=== PATIENT | female | born 1965 | race Caucasian/White ===

== ENCOUNTER 2018-02-14 10:24 | Emergency (ER) | payer MEDICAID ==
[2018-02-14] MEDS: SOD CHLORIDE 0.9% 1,000 ML IV (10:39)
[2018-02-14] MEDS: LORAZEPAM 2 MG INJ IV (10:40)
[2018-02-14 10:48] LABS: ADD MAN DIFF? NO
[2018-02-14 10:58] LABS: WHITE BLOOD COUNT 6.6 10^3/ul (4.8-10.8)
[2018-02-14 10:58] LABS: BASOPHILS % 0.3 % (0.0-2.0); EOSINOPHILS # 0.1 10^3/ul (0.0-0.5); EOSINOPHILS % 1.4 % (0.0-7.0); HEMOGLOBIN 13.3 g/dl (12.0-16.0); LYMPHOCYTES # 2.8 10^3/ul (0.8-2.9); LYMPHOCYTES % 42.8 % (15.0-51.0); MEAN CORPUSCULAR HEMOGLOBIN 31.9 pg (29.0-33.0); MEAN CORPUSCULAR VOLUME 91.1 fl (82.0-101.0); MEAN PLATELET VOLUME 12.1 fl (7.4-10.4); MONOCYTE # 0.3 10^3/ul (0.3-0.9); MONOCYTES % 4.1 % (0.0-11.0); NEUTROPHIL # 3.4 10^3/ul (1.6-7.5); NEUTROPHILS % 50.9 % (39.0-77.0); PLATELET COUNT 196 10^3/UL (140-415); RED BLOOD COUNT 4.17 10^6/ul (4.20-5.40)
[2018-02-14 11:16] LABS: ALANINE AMINOTRANSFERASE 26 IU/L (13-69); ALBUMIN 4.6 g/dl (3.3-4.9); ALBUMIN/GLOBULIN RATIO 1.24; ALKALINE PHOSPHATASE 98 IU/L (42-121); ANION GAP 17 (8-16); ASPARTATE AMINO TRANSFERASE 26 IU/L (15-46); BILIRUBIN,INDIRECT 0.6 mg/dl (0-1.1); BILIRUBIN,TOTAL 0.6 mg/dl (0.2-1.3); BLOOD UREA NITROGEN 13 mg/dl (7-20); CALCIUM 9.1 mg/dl (8.4-10.2); CARBON DIOXIDE 24 mmol/L (21-31); CHLORIDE 105 mmol/L (97-110); GLUCOSE 186 mg/dl (70-220); LIPASE 117 U/L (23-300); POTASSIUM 3.8 mmol/L (3.5-5.1); SODIUM 142 mmol/L (135-144); TOTAL PROTEIN 8.3 g/dl (6.1-8.1)
[2018-02-14 11:27] LABS: TROPONIN-I < 0.010 ng/ml (0.000-0.120)
== END 2018-02-14 14:30 | disposition home or self-care (01) ==
LOC: E/R 10:24
DX: F41.9 Anxiety disorder, unspecified (principal)
CPT/HCPCS: 36415; 80053; 83690; 84484; 85025; 93005; 96374; 99284-25

== ENCOUNTER 2018-04-07 08:32 | Inpatient (IN) | payer MEDICAID ==
[2018-04-07] MEDS: morphine 4 MG/ML VIAL IV (09:48)
[2018-04-07] MEDS: FAMOTIDINE 20 MG INJ IV (09:48)
[2018-04-07] MEDS: ONDANSETRON 4 MG INJ IV (09:48)
[2018-04-07] MEDS: SOD CHLORIDE 0.9% 1,000 ML IV ×2 (09:48→13:48)
[2018-04-07 10:10] LABS: ADD MAN DIFF? NO
[2018-04-07 10:17] LABS: WHITE BLOOD COUNT 5.2 10^3/ul (4.8-10.8)
[2018-04-07 10:17] LABS: BASOPHILS % 0.2 % (0.0-2.0); HEMATOCRIT 39.9 % (37.0-47.0); HEMOGLOBIN 13.8 g/dl (12.0-16.0); LYMPHOCYTES # 1.1 10^3/ul (0.8-2.9); MEAN CORPUSCULAR HEMOGLOBIN 31.6 pg (29.0-33.0); MEAN CORPUSCULAR HGB CONC 34.6 g/dl (32.0-37.0); MEAN CORPUSCULAR VOLUME 91.3 fl (82.0-101.0); MONOCYTE # 0.3 10^3/ul (0.3-0.9); MONOCYTES % 6.2 % (0.0-11.0); NEUTROPHIL # 3.7 10^3/ul (1.6-7.5); NEUTROPHILS % 71.4 % (39.0-77.0); PLATELET COUNT 141 10^3/UL (140-415); RED BLOOD COUNT 4.37 10^6/ul (4.20-5.40)
[2018-04-07] MEDS: DICYCLOMINE 20 MG INJ IM (10:19)
[2018-04-07 10:31] LABS: ALANINE AMINOTRANSFERASE 16 IU/L (13-69); ALBUMIN 4.5 g/dl (3.3-4.9); ALBUMIN/GLOBULIN RATIO 1.25; ALKALINE PHOSPHATASE 100 IU/L (42-121); ANION GAP 15 (8-16); ASPARTATE AMINO TRANSFERASE 23 IU/L (15-46); BILIRUBIN,INDIRECT 0.8 mg/dl (0-1.1); BILIRUBIN,TOTAL 0.8 mg/dl (0.2-1.3); BLOOD UREA NITROGEN 12 mg/dl (7-20); CALCIUM 9.1 mg/dl (8.4-10.2); CARBON DIOXIDE 24 mmol/L (21-31); CHLORIDE 105 mmol/L (97-110); CREATININE 0.54 mg/dl (0.44-1.00); GLUCOSE 117 mg/dl (70-220); LIPASE 97 U/L (23-300); POTASSIUM 3.9 mmol/L (3.5-5.1); SODIUM 140 mmol/L (135-144); TOTAL PROTEIN 8.1 g/dl (6.1-8.1)
[2018-04-07] MEDS ORDERED: ONDANSETRON 4 MG INJ IV (11:30)
[2018-04-07] MEDS ORDERED: NACL 0.9% 3 ML SYG IV (12:00)
[2018-04-07] MEDS: ACETAMINOPHEN 325 MG TAB PO (20:45)
[2018-04-07] MEDS: ATORVASTATIN 20 MG TAB PO (20:45)
[2018-04-08] MEDS: SOD CHLORIDE 0.9% 1,000 ML IV ×2 (02:55→20:48)
[2018-04-08] MEDS: PANTOPRAZOLE 40 MG INJ IV (06:06)
[2018-04-08 06:33] LABS: FREE THYROXINE INDEX (Calc) 2.05 ug/ml (0.65-3.89); T3 UPTAKE 37.2 % (23.5-40.5); T4 (THYROXINE) 5.5 ug/dl (5.5-11.0)
[2018-04-08 08:16] LABS: HEMOGLOBIN A1C 5.7 % (0-5.9)
[2018-04-08] MEDS: ACETAMINOPHEN 325 MG TAB PO ×2 (09:39→21:20)
[2018-04-08 10:59] LABS: ADD MAN DIFF? NO
[2018-04-08 11:06] LABS: WHITE BLOOD COUNT 4.3 10^3/ul (4.8-10.8)
[2018-04-08 11:06] LABS: BASOPHILS % 0.5 % (0.0-2.0); EOSINOPHILS # 0.1 10^3/ul (0.0-0.5); EOSINOPHILS % 1.2 % (0.0-7.0); HEMATOCRIT 36.8 % (37.0-47.0); HEMOGLOBIN 12.6 g/dl (12.0-16.0); LYMPHOCYTES # 1.5 10^3/ul (0.8-2.9); LYMPHOCYTES % 35.5 % (15.0-51.0); MEAN CORPUSCULAR HEMOGLOBIN 31.8 pg (29.0-33.0); MEAN CORPUSCULAR HGB CONC 34.2 g/dl (32.0-37.0); MEAN CORPUSCULAR VOLUME 92.9 fl (82.0-101.0); MONOCYTE # 0.3 10^3/ul (0.3-0.9); MONOCYTES % 7.7 % (0.0-11.0); NEUTROPHIL # 2.4 10^3/ul (1.6-7.5); NEUTROPHILS % 54.9 % (39.0-77.0); PLATELET COUNT 133 10^3/UL (140-415); RED BLOOD COUNT 3.96 10^6/ul (4.20-5.40); RED CELL DISTRIBUTION WIDTH 12.1 % (11.5-14.5)
[2018-04-08 11:23] LABS: ALANINE AMINOTRANSFERASE 48 IU/L (13-69); ALBUMIN 3.7 g/dl (3.3-4.9); ALBUMIN/GLOBULIN RATIO 1.02; ALKALINE PHOSPHATASE 79 IU/L (42-121); ANION GAP 11 (8-16); ASPARTATE AMINO TRANSFERASE 60 IU/L (15-46); BILIRUBIN,INDIRECT 0.7 mg/dl (0-1.1); BILIRUBIN,TOTAL 0.7 mg/dl (0.2-1.3); BLOOD UREA NITROGEN 9 mg/dl (7-20); CALCIUM 8.6 mg/dl (8.4-10.2); CARBON DIOXIDE 26 mmol/L (21-31); CHLORIDE 105 mmol/L (97-110); CREATININE 0.53 mg/dl (0.44-1.00); GLUCOSE 158 mg/dl (70-220); SODIUM 139 mmol/L (135-144); TOTAL PROTEIN 7.3 g/dl (6.1-8.1)
[2018-04-08] MEDS: POTASSIUM CHLORIDE (SR) 20 MEQ TAB PO ×2 (12:18→20:48)
[2018-04-08 20:14] LABS: HEMATOCRIT 39.4 % (37.0-47.0)
[2018-04-08 20:31] LABS: OCCULT BLOOD STOOL NEGATIVE (NEGATIVE)
[2018-04-08] MEDS: ATORVASTATIN 20 MG TAB PO (20:48)
[2018-04-09] MEDS: POTASSIUM CHLORIDE (SR) 20 MEQ TAB PO (04:00)
[2018-04-09 06:14] LABS: ADD MAN DIFF? NO
[2018-04-09] MEDS: PANTOPRAZOLE 40 MG INJ IV (06:16)
[2018-04-09 06:24] LABS: BASOPHILS % 0.2 % (0.0-2.0); EOSINOPHILS # 0.1 10^3/ul (0.0-0.5); EOSINOPHILS % 2.2 % (0.0-7.0); HEMATOCRIT 41.1 % (37.0-47.0); HEMOGLOBIN 13.7 g/dl (12.0-16.0); LYMPHOCYTES # 2.5 10^3/ul (0.8-2.9); LYMPHOCYTES % 50.5 % (15.0-51.0); MEAN CORPUSCULAR HEMOGLOBIN 31.4 pg (29.0-33.0); MEAN CORPUSCULAR HGB CONC 33.3 g/dl (32.0-37.0); MEAN CORPUSCULAR VOLUME 94.3 fl (82.0-101.0); MEAN PLATELET VOLUME 12.6 fl (7.4-10.4); MONOCYTE # 0.5 10^3/ul (0.3-0.9); MONOCYTES % 9.2 % (0.0-11.0); NEUTROPHIL # 1.9 10^3/ul (1.6-7.5); NEUTROPHILS % 37.7 % (39.0-77.0); PLATELET COUNT 136 10^3/UL (140-415); RED BLOOD COUNT 4.36 10^6/ul (4.20-5.40); RED CELL DISTRIBUTION WIDTH 12.2 % (11.5-14.5)
[2018-04-09 07:17] LABS: ANION GAP 17 (8-16); BLOOD UREA NITROGEN 6 mg/dl (7-20); CALCIUM 9.4 mg/dl (8.4-10.2); CARBON DIOXIDE 22 mmol/L (21-31); CHLORIDE 107 mmol/L (97-110); CREATININE 0.54 mg/dl (0.44-1.00); GLUCOSE 97 mg/dl (70-220); PHOSPHORUS 4.3 mg/dl (2.5-4.9); POTASSIUM 4.2 mmol/L (3.5-5.1); SODIUM 142 mmol/L (135-144)
[2018-04-09] MEDS: ACETAMINOPHEN 325 MG TAB PO (08:01)
[2018-04-09] MEDS: HYDROCODONE/APAP (5/325) TAB PO ×2 (15:24→22:30)
[2018-04-09] MEDS: LOPERAMIDE 2 MG CAP PO ×2 (16:01→20:37)
[2018-04-09] MEDS: SOD CHLORIDE 0.9% 1,000 ML IV (17:17)
[2018-04-09] MEDS: ATORVASTATIN 20 MG TAB PO (20:36)
[2018-04-09] MEDS: PANTOPRAZOLE (EC) 40 MG TAB PO (20:37)
[2018-04-10] MEDS: ONDANSETRON 4 MG INJ IV (02:28)
[2018-04-10] MEDS: PANTOPRAZOLE 40 MG INJ IV (05:35)
[2018-04-10] MEDS: LOPERAMIDE 2 MG CAP PO (10:03)
[2018-04-10] MEDS: HYDROCODONE/APAP (5/325) TAB PO (10:04)
== END 2018-04-10 14:20 | disposition home or self-care (01) | DRG 392 ==
LOC: E/R 08:32 → MS1 11:14
DX: A08.4 Viral intestinal infection, unspecified (principal); E78.5 Hyperlipidemia, unspecified; K29.50 Unspecified chronic gastritis without bleeding; K21.9 Gastro-esophageal reflux disease without esophagitis; Z90.710 Acquired absence of both cervix and uterus
CPT/HCPCS: 36415; 74176; 76705; 80048; 80053; 82270; 83036; 83690; 83735; 84100; 84436; 84479; 85014; 85018; 85025; 87045; 87075; 87205; 96361; 96372; 96374; 96375; 99285-25

== ENCOUNTER 2018-08-12 12:36 | Emergency (ER) | payer SELFPAY, MEDICAID | END 2018-08-12 18:00 | disposition left against medical advice (07) | LOC: FTE 12:36 | DX: Z53.21 Procedure and treatment not carried out due to patient leaving prior to being seen by health care provider (principal) ==

== ENCOUNTER 2019-04-06 09:49 | Emergency (ER) | payer MEDICAID | END 2019-04-06 12:35 | disposition home or self-care (01) | LOC: FTE 09:49 | DX: R05 Cough (principal) | CPT/HCPCS: 71045; 93005; 99284-25 ==